=== PATIENT | female | born 1990 | race Caucasian/White ===

== ENCOUNTER 2017-01-19 09:28 | Emergency (ER) | payer OTHER ==
[~2017-01-19] VITALS: Wt 72.6 kg
[2017-01-19] MEDS ORDERED: AUGMENTIN 875875 MG PO (11:23)
== END 2017-01-19 11:56 | disposition left against medical advice (07) ==
LOC: ED 09:28
DX: H66.91 Otitis media, unspecified, right ear (principal); F17.200 Nicotine dependence, unspecified, uncomplicated; W55.01XA Bitten by cat, initial encounter; Y93.89 Activity, other specified; Y92.9 Unspecified place or not applicable; Y99.9 Unspecified external cause status

== ENCOUNTER 2017-09-26 03:52 | Emergency (ER) | payer OTHER ==
[~2017-09-26] VITALS: Ht 162.5 cm; Wt 56.7 kg
[~2017-09-26 03:52] MED LIST: AUGMENTIN 875875 MG PO
[2017-09-26 04:14] LABS: BILIRUBIN 1+ (NEGATIVE); BLOOD NEGATIVE (NEGATIVE); CLARITY SL CLOUDY (CLEAR); COLOR YELLOW (YELLOW); GLUCOSE NEGATIVE (NEGATIVE); KETONE NEGATIVE (NEGATIVE); LEUKO ESTERASE NEGATIVE (NEGATIVE); NITRITE NEGATIVE (NEGATIVE); PH 5.5 (5.0-9.0); SPECIFIC GRAVITY >= 1.030 (1.005-1.030)
[2017-09-26 04:19] LABS: BACTERIA 2+; EPITHELIAL CELLS TNTC; MUCOUS TRACE; RBC 0-2 rbc/hpf (0-2)
[2017-09-26] MEDS ORDERED: MACROBID100 M1 PO (04:50)
== END 2017-09-26 05:20 | disposition home or self-care (01) ==
LOC: ED 03:52
PROVIDERS: Emergency Medicine Emergency Medical Services
DX: O23.41 Unspecified infection of urinary tract in pregnancy, first trimester (principal); B96.89 Other specified bacterial agents as the cause of diseases classified elsewhere; Z3A.01 Less than 8 weeks gestation of pregnancy

== ENCOUNTER 2017-12-09 14:10 | Emergency (ER) | payer OTHER ==
[~2017-12-09] VITALS: Wt 57.2 kg
--- NOTE | ~2017-12-09 | EKG ---
[place], [place] ELECTROCARDIOGRAM REPORT NAME: AVERY BROWNE I UNIT #: [id number] ROOM: DOCTOR: EPIPHANY DRAFT REPORT BIRTHDATE: [birth year] [facility] Test Date: 2017-12-09 Test Time: 14:41:10 Pat Name: AVERY BROWNE Department: ER Room: Gender: F Plant Production Manager: James Galeana : 1990 Requested By: REBEKA HOWELL Order Number: [id number] Reading MD: Paulie Lim MD Measurements Intervals [place] Rate: 74 P: 70 CT: 151 QRS: 58 QRSD: 77 T: 53 QT: 416 QTc: 462 Interpretive Statements Sinus rhythm Abnormal Q suggests anterior infarct Electronically Signed On 12-12-2017 4:21:36 PDT by Paluie Lim MD CM:EKGRPT:ELECTROCARDIOGRAM REPORT [id number] REBEKA HOWELL EPIPHANY DRAFT REPORT REBEKA HOWELL
[~2017-12-09 14:10] MED LIST changes: +MACROBID100 M1 PO
[2017-12-09] MEDS ORDERED: PRENATAL VITAM1 EAC4 PO (14:29)
[2017-12-09 14:33] LABS: HEMATOCRIT 34.5 % (37.0-47.0); HEMOGLOBIN 11.4 g/dl (12.0-16.0); MEAN CELL VOLUME 89.6 fl (81.0-99.0); MEAN CORPUSCULAR HGB 29.6 pg (27.0-31.0); MEAN PLATELET VOLUME 9.3 fl (9.6-12.3); PLATELET COUNT AUTOMATED 233 10*3/uL (130-400); RED BLOOD COUNT 3.85 10*6/uL (4.10-5.10); RED CELL DISTRI WIDTH 13.5 % (0-14.5); WHITE BLOOD COUNT 5.4 10*3/uL (4.8-10.8)
[2017-12-09 14:46] LABS: ALBUMIN 3.1 gm/dl (3.1-4.5); ALKALINE PHOSPHATASE 61 U/L (45-117); BUN 8 mg/dl (7-24); CHLORIDE 102 mmol/L (98-107); CREATININE 0.55 mg/dL (0.55-1.02); POTASSIUM 3.3 mmol/L (3.5-5.1); SGOT/AST 28 IU/L (3-35); SGPT/ALT 32 U/L (12-78); SODIUM 138 mmol/L (136-145); TOTAL PROTEIN 7.3 gm/dL (6.4-8.2)
[2017-12-09 14:48] LABS: TROPONIN I < 0.015 ng/ml (<0.045)
[2017-12-09 15:02] LABS: PLATELET SUFFICIENCY NORMAL (NORMAL); TOTAL CELLS COUNTED 100 #CELLS
[2017-12-09 15:31] LABS: BILIRUBIN NEGATIVE (NEGATIVE); BLOOD NEGATIVE (NEGATIVE); CLARITY CLOUDY (CLEAR); COLOR YELLOW (YELLOW); GLUCOSE NEGATIVE (NEGATIVE); KETONE NEGATIVE (NEGATIVE); LEUKO ESTERASE NEGATIVE (NEGATIVE); NITRITE NEGATIVE (NEGATIVE)
[2017-12-09 15:47] LABS: URINE AMPHETAMINES < 1000 (1000ng/ml); URINE BARBITURATES < 200 (200ng/ml); URINE BENZODIAZEPINES < 200 (200ng/ml); URINE CANNABINOIDS (THC) < 50 (50ng/ml); URINE COCAINE > 300 (300ng/ml); URINE METHADONE < 300 (300ng/ml); URINE OPIATES > 300 (300ng/ml)
[2017-12-09 15:50] LABS: URINE PHENCYCLIDINE < 25 (25ng/ml)
== END 2017-12-09 16:22 | disposition left against medical advice (07) ==
LOC: ED 14:10
PROVIDERS: Nurse Practitioner Family
DX: O26.891 Other specified pregnancy related conditions, first trimester (principal); R55 Syncope and collapse; O9A.211 Injury, poisoning and certain other consequences of external causes complicating pregnancy, first trimester; F11.10 Opioid abuse, uncomplicated; Z3A.08 8 weeks gestation of pregnancy

== ENCOUNTER 2018-10-22 17:13 | Emergency (ER) | payer OTHER ==
[~2018-10-22] VITALS: Ht 162.5 cm; Wt 55.8 kg
[~2018-10-22 17:13] MED LIST changes: +PRENATAL VITAM1 EAC4 PO
[2018-10-22 18:09] LABS: BILIRUBIN NEGATIVE (NEGATIVE); BLOOD NEGATIVE (NEGATIVE); CLARITY CLEAR (CLEAR); COLOR YELLOW (YELLOW); GLUCOSE NEGATIVE (NEGATIVE); KETONE NEGATIVE (NEGATIVE); LEUKO ESTERASE NEGATIVE (NEGATIVE); NITRITE NEGATIVE (NEGATIVE); PH 5.5 (5.0-9.0); SPECIFIC GRAVITY >= 1.030 (1.005-1.030); UROBILINOGEN 0.2 E.U./dl (0.2-1.0)
[2018-10-22 18:10] LABS: BASO # 0.1 10*3/uL (0.0-0.1); BASO % 0.6 % (0.0-1.0); EOS # 0.1 10*3/uL (0.0-0.4); EOS % 0.8 % (1.0-4.0); HEMATOCRIT 37.5 % (37.0-47.0); LYMPH # 2.2 10*3/uL (1.3-4.4); LYMPH % 20.8 % (27.0-41.0); MEAN CELL VOLUME 88.2 fl (81.0-99.0); MEAN CORPUSCULAR HGB 28.2 pg (27.0-31.0); MEAN PLATELET VOLUME 8.9 fl (9.6-12.3); MONO # 1.1 10*3/uL (0.1-1.0); MONO % 10.6 % (3.0-9.0); NEUT % 66.8 % (47.0-73.0); PLATELET COUNT AUTOMATED 448 10*3/uL (130-400); RED BLOOD COUNT 4.25 10*6/uL (4.10-5.10); RED CELL DISTRI WIDTH 15.4 % (0-14.5); WHITE BLOOD COUNT 10.5 10*3/uL (4.8-10.8)
[2018-10-22 18:19] LABS: URINE AMPHETAMINES > 1000 (1000ng/ml); URINE BARBITURATES < 200 (200ng/ml); URINE BENZODIAZEPINES < 200 (200ng/ml); URINE CANNABINOIDS (THC) < 50 (50ng/ml); URINE COCAINE > 300 (300ng/ml); URINE METHADONE < 300 (300ng/ml); URINE OPIATES < 300 (300ng/ml)
[2018-10-22 18:22] LABS: URINE PHENCYCLIDINE < 25 (25ng/ml)
[2018-10-22 18:27] LABS: BACTERIA 2+; CALCIUM OXALATE CRYSTALS 1+; MUCOUS 3+; WBC 21-30 wbc/hpf (0-5)
[2018-10-22 18:33] LABS: ALBUMIN 4.1 gm/dl (3.1-4.5); ALKALINE PHOSPHATASE 84 U/L (45-117); BUN 13 mg/dl (7-24); CHLORIDE 104 mmol/L (98-107); CREATININE 0.95 mg/dL (0.55-1.02); POTASSIUM 3.2 mmol/L (3.5-5.1); SGOT/AST 23 IU/L (3-35); SGPT/ALT 30 U/L (12-78); SODIUM 137 mmol/L (136-145); TOTAL PROTEIN 8.7 gm/dL (6.4-8.2)
[2018-10-22] MEDS ORDERED: SEPTDS PO (19:27)
[2018-10-22] MEDS ORDERED: NAPROSYN500 MG PO (19:27)
[2018-11-19] MEDS ORDERED: IBU800 MG PO (03:11)
== END 2018-10-22 19:31 | disposition home or self-care (01) ==
LOC: ED 17:13
PROVIDERS: Nurse Practitioner Family
DX: L03.114 Cellulitis of left upper limb (principal); S50.11XA Contusion of right forearm, initial encounter; K04.7 Periapical abscess without sinus; Z79.2 Long term (current) use of antibiotics; Z79.899 Other long term (current) drug therapy; X58.XXXA Exposure to other specified factors, initial encounter; Y93.89 Activity, other specified; Y92.89 Other specified places as the place of occurrence of the external cause; Y99.8 Other external cause status

== ENCOUNTER 2022-06-17 12:22 | Emergency (ER) | payer OTHER ==
[~2022-06-17] VITALS: Ht 165.1 cm; Wt 50.8 kg
[~2022-06-17 12:22] MED LIST changes: +GABAPENTIN600 MG PO; +IBU800 MG PO; +NAPROSYN500 MG PO; +SEPTDS PO
== END 2022-06-17 15:12 | disposition home or self-care (01) ==
LOC: ED 12:22
DX: T40.1X1A Poisoning by heroin, accidental (unintentional), initial encounter (principal); Y92.89 Other specified places as the place of occurrence of the external cause

== ENCOUNTER 2023-01-11 10:51 | Inpatient (IN) | payer OTHER ==
[~2023-01-11] VITALS: Ht 165.1 cm; Wt 54.4 kg
[2023-01-11 11:06] VITALS: BP 116/73
[2023-01-11] MEDS ORDERED: GABAPENTIN600 MG PO (11:28)
[2023-01-11 11:38] LABS: BASO % 0.7 % (0.0-1.0); EOS # 0.2 10*3/uL (0.0-0.4); EOS % 4.9 % (1.0-4.0); HEMATOCRIT 38.5 % (37.0-47.0); MEAN CELL VOLUME 89.1 fl (81.0-99.0); MEAN CORPUSCULAR HGB 28.2 pg (27.0-31.0); MEAN CORPUSCULAR HGB CONC 31.7 g/dl (33.0-37.0); MEAN PLATELET VOLUME 8.7 fl (9.6-12.3); MONO # 0.5 10*3/uL (0.1-1.0); MONO % 11.1 % (3.0-9.0); NEUT # 1.8 10*3/uL (2.3-7.9); NEUT % 39.3 % (47.0-73.0); PLATELET COUNT AUTOMATED 316 10*3/uL (130-400); RED BLOOD COUNT 4.32 10*6/uL (4.10-5.10); RED CELL DISTRI WIDTH 12.9 % (0-14.5); WHITE BLOOD COUNT 4.5 10*3/uL (4.8-10.8)
[2023-01-11 11:45] LABS: ACT PARTIAL THROMBO TIME 33.7 SECONDS (20.0-32.1)
[2023-01-11 12:05] LABS: ALKALINE PHOSPHATASE 98 U/L (46-116); BUN 8 mg/dl (9-23); CHLORIDE 107 mmol/L (98-107); LIPASE 28 U/L (12-53); POTASSIUM 3.9 mmol/L (3.4-5.1); SGPT/ALT 22 U/L (10-49); TOTAL PROTEIN 7.1 gm/dL (6.0-8.0)
[2023-01-11 12:07] LABS: BETA-HCG, QUANT < 3.0 mIU/mL (3-10)
[2023-01-11 13:07] VITALS: BP 114/74
[2023-01-11 14:00] LABS: BILIRUBIN Negative (Negative); BLOOD Negative (Negative); CLARITY Clear (Clear); COLOR Yellow (Yellow); GLUCOSE Negative (Negative); KETONE Negative (Negative); LEUKO ESTERASE Negative (Negative); NITRITE Negative (Negative); PH 5.5 (4.5-8.0)
[2023-01-11 14:07] LABS: URINE AMPHETAMINES Negative (1000ng/ml); URINE BARBITURATES Negative (200ng/ml); URINE BENZODIAZEPINES Negative (200ng/ml); URINE CANNABINOIDS (THC) Negative (50ng/ml); URINE COCAINE Negative (300ng/ml); URINE METHADONE Negative (300ng/ml); URINE OPIATES Positive (300ng/ml); URINE PHENCYCLIDINE Negative (25ng/ml)
[2023-01-11 14:21] LABS: RBC 0-2 rbc/hpf (0-2); WBC 0-2 wbc/hpf (0-5)
[2023-01-11 14:22] LABS: BACTERIA 1+
[2023-01-11 17:03] VITALS: BP 114/74
== END 2023-01-11 18:20 | disposition left against medical advice (07) | DRG 770 ==
LOC: ED 10:51 → EDHOLD 11:57
PROVIDERS: Emergency Medicine; ADMIT Student in an Organized Health Care Education/Training Program; ATTEND Student in an Organized Health Care Education/Training Program
DX: F11.23 Opioid dependence with withdrawal (principal); E44.1 Mild protein-calorie malnutrition; D72.819 Decreased white blood cell count, unspecified; Z53.29 Procedure and treatment not carried out because of patient's decision for other reasons; F33.9 Major depressive disorder, recurrent, unspecified; F41.9 Anxiety disorder, unspecified; F17.210 Nicotine dependence, cigarettes, uncomplicated; Z79.899 Other long term (current) drug therapy; Z83.3 Family history of diabetes mellitus; Z82.5 Family history of asthma and other chronic lower respiratory diseases; Z81.3 Family history of other psychoactive substance abuse and dependence; Z71.6 Tobacco abuse counseling; Z68.20 Body mass index [BMI] 20.0-20.9, adult

== ENCOUNTER 2024-03-06 14:26 | Emergency (ER) | payer OTHER ==
[~2024-03-06] VITALS: Ht 165.1 cm; Wt 77.1 kg
[2024-03-06 15:14] LABS: BILIRUBIN Negative (Negative); BLOOD Negative (Negative); CLARITY Clear (Clear); COLOR Yellow (Yellow); GLUCOSE Negative (Negative); KETONE Negative (Negative); LEUKO ESTERASE Negative (Negative); NITRITE Negative (Negative); SPECIFIC GRAVITY 1.015 (1.001-1.030)
[2024-03-06 15:39] LABS: BACTERIA 1+; RBC 0-2 rbc/hpf (0-2)
== END 2024-03-06 15:58 | disposition home or self-care (01) ==
LOC: ED 14:26
PROVIDERS: Physician Assistant Medical
DX: O99.891 Other specified diseases and conditions complicating pregnancy (principal); O99.323 Drug use complicating pregnancy, third trimester; R10.9 Unspecified abdominal pain; Z3A.34 34 weeks gestation of pregnancy; F11.10 Opioid abuse, uncomplicated; F17.210 Nicotine dependence, cigarettes, uncomplicated

== ENCOUNTER 2024-05-14 17:59 | Emergency (ER) | payer OTHER ==
[~2024-05-14] VITALS: Ht 162.5 cm; Wt 59.0 kg
[2024-05-14] MEDS ORDERED: BUPRENORPHINE HY8 MG SL (19:27)
[2024-05-14 20:08] LABS: BILIRUBIN Negative (Negative); BLOOD 2+ (Negative); CLARITY Cloudy (Clear); COLOR Yellow (Yellow); GLUCOSE Negative (Negative); KETONE Negative (Negative); LEUKO ESTERASE 2+ (Negative); NITRITE Negative (Negative); SPECIFIC GRAVITY 1.025 (1.001-1.030)
[2024-05-14 20:17] LABS: BACTERIA 2+; RBC 16-20 rbc/hpf (0-2); WBC TNTC wbc/hpf (0-5)
[2024-05-14] MEDS ORDERED: Ciprofloxacin Hydrochloride 500 MG TAB PO ONE (20:20)
[2024-05-14] MEDS ORDERED: CIPRO500 MG PO (20:22)
== END 2024-05-14 20:18 | disposition home or self-care (01) ==
LOC: ED 17:59
PROVIDERS: Internal Medicine
DX: N39.0 Urinary tract infection, site not specified (principal); F17.210 Nicotine dependence, cigarettes, uncomplicated; F11.10 Opioid abuse, uncomplicated